=== PATIENT | male | born 1950 | race Caucasian/White ===

== ENCOUNTER 2017-09-08 09:07 | Emergency (ER) | payer SELFPAY ==
[~2017-09-08] VITALS: Ht 182.9 cm; Wt 92.0 kg
[2017-09-08 09:49] VITALS: BP 159/90; PULSE 75; RESP 17; TEMP 99; O2SAT 97
--- NOTE | 2017-09-08 10:25 | PD ---
HPI Chief Complaint: Injury Time Seen by Provider: 10:11 Travel History International Travel<30 days: No Contact w/Intl Traveler<30days: No Traveled to known affect area: No History of Present Illness HPI 67-year-old male presents to the emergency room for evaluation of right knee pain and swelling after injuring it yesterday. Patient states he is coming off of the 4 inch step with groceries in his hand when he twisted his knee. States he felt his foot straight but his knee turned in. He heard a loud pop and continued to ambulate thinking that it was his ankle that had popped. The pain was delayed onset. It is localized to the medial aspect with radiation to the posterior knee. Pain is worsened with ambulation to the point where he cannot ambulate. No pain at rest. He took Aleve this morning without relief in symptoms. Denies history of chronic knee problems. PFSH Past Medical History Medical History: Denies Significant Hx Past Surgical History Other Surgery: Yes (hernia) Social History Alcohol Use: No Tobacco Use: No Substance Use: No Allergies-Medications (Allergen,Severity, Reaction): Coded Allergies: No Known Allergies (Unverified , 09/08/17) Reported Meds & Prescriptions Reported Meds & Active Scripts Active No Active Prescriptions or Reported Medications Review of Systems Except as stated in HPI: all other systems reviewed are Neg Physical Exam Narrative GENERAL: Well-nourished, well-developed male in no acute distress. Afebrile. Ambulatory. SKIN: Focused skin assessment warm/dry. No erythema or ecchymosis. HEAD: Normocephalic. EYES: No scleral icterus. No injection or drainage. NECK: Supple, trachea midline. No JVD or lymphadenopathy. CARDIOVASCULAR: Regular rate and rhythm without murmurs, gallops, or rubs. RESPIRATORY: Breath sounds equal bilaterally. No accessory muscle use. MUSCULOSKELETAL: No cyanosis. No edema. Full range of motion of the right knee. Tenderness to palpation over the posterior medial aspect. Palpable 1+ dorsalis pedis pulse. Data Data Last Documented VS Vital Signs Date Time Temp Pulse Resp B/P (MAP) Pulse Ox O2 Delivery O2 Flow Rate FiO2 09/08/17 09:49 99.0 75 17 159/90 (113) 97 Orders Orders Knee, Complete (4vws) (09/08/17 ) ^ Knee Immobilizer (09/08/17 11:46) Crutches (09/08/17 11:46) Ed Discharge Order (09/08/17 11:46) [facility] Medical Decision Making Medical Screen Exam Complete: Yes Emergency Medical Condition: Yes Medical Record Reviewed: Yes Differential Diagnosis Fracture, strain, sprain, dislocation Narrative Course 67-year-old male presents to the emergency room for evaluation of right knee pain and swelling after injuring it yesterday. Patient twisted his knee while coming off of a 4 inch step. He heard and felt a pop to the medial aspect and subsequently developed pain with ambulation. Right lower extremity is neurovascularly intact with 2+ dorsalis pedis pulse. Patient has full range of motion. There is no obvious edema, erythema, or ecchymosis. Tenderness to palpation of the right medial aspect of the knee. X-ray is negative. Likely internal derangement. Patient told to follow-up with his primary care physician for outpatient MRI if symptoms persist. He understands and agrees to plan. Diagnosis Primary Impression: Internal derangement of right knee Referrals: [facility] Additional Instructions: Rest and drink plenty of fluids. Crutches and knee immobilizer for the next several days, then as needed for pain. Take ibuprofen with food as directed, as needed for pain. Apply ice to the affected area for 20 minutes at a time, as needed for pain and swelling. Follow-up with a primary care physician for outpatient MRI if symptoms persist. Return to the emergency room for worsening symptoms. Scripts No Active Prescriptions or Reported Meds Disposition: 01 DISCHARGE HOME Condition: Stable Tika Fraga Sep 08, 2017 10:25
--- NOTE | 2017-09-08 11:41 | RADRPT ---
EXAM DATE/TIME: 09/08/2017 11:03 [facility] COMPARISON: No previous studies available for comparison. INDICATIONS : Twisted right knee in hole yesterday, pain medial knee with any motion and weight bearing. MEDICAL HISTORY : None. SURGICAL HISTORY : None. ENCOUNTER: Initial ACUITY: 2 days PAIN SCORE: 8/10 LOCATION: Right knee FINDINGS: Four view examination of the right knee demonstrates no evidence of fracture or dislocation. Bony mi neralization is normal. There is minimal spurring in the medial compartment and patellofemoral joint . The articular surfaces are intact. There is mild fullness in the suprapatellar bursa region. CONCLUSION: 1. No acute fracture or malalignment. 2. Small joint effusion. 3. Osteoarthritic change. Jose David Long MD on September 08, 2017 at 11:38 Board Certified Radiologist. This report was verified electronically.
== END 2017-09-08 12:03 | disposition home or self-care (01) ==
LOC: NEPK 09:07
DX: M23.91 Unspecified internal derangement of right knee (principal)
CPT/HCPCS: 73564; 99283; E0113; L1830